=== PATIENT | male | born 1990 | race Caucasian/White ===

== ENCOUNTER → 2021-12-30 | Outpatient (CLI) | payer OTHER | LOC: M CARPUL 09:46 | PROVIDERS: ATTEND Emergency Medicine | DX: J45.30 Mild persistent asthma, uncomplicated (principal) ==

== ENCOUNTER → 2025-03-22 | Outpatient (CLI) | payer OTHER | LOC: M CARPUL 12:32 | PROVIDERS: ATTEND Physician Assistant | DX: J45.20 Mild intermittent asthma, uncomplicated (principal) ==